=== PATIENT | female | born 1985 | race African-American/Black ===

== ENCOUNTER 2024-06-21 09:12 | Outpatient (CLI) | payer OTHER | END 2024-06-21 09:13 | disposition home or self-care (01) | LOC: ULT 09:12 | PROVIDERS: ATTEND Nurse Practitioner Family | DX: R10.11 Right upper quadrant pain (principal); K86.89 Other specified diseases of pancreas | CPT/HCPCS: 76705 ==

== ENCOUNTER 2024-08-24 09:06 | Outpatient (CLI) | payer OTHER ==
[2024-08-24] MEDS ORDERED: Iopamidol 370 76% 100 ML VIAL ONE (10:07)
== END 2024-08-24 09:07 | disposition home or self-care (01) ==
LOC: BICCT 09:06
DX: D47.Z2 Castleman disease (principal); R91.1 Solitary pulmonary nodule; R59.0 Localized enlarged lymph nodes; K68.9 Other disorders of retroperitoneum
CPT/HCPCS: 36415; 71270; 74178; 82565

== ENCOUNTER 2024-09-14 09:30 | Outpatient (CLI) | payer OTHER | END 2024-09-14 09:31 | disposition home or self-care (01) | LOC: PET 09:30 | PROVIDERS: ATTEND Internal Medicine | DX: D47.Z2 Castleman disease (principal); R59.0 Localized enlarged lymph nodes | CPT/HCPCS: 78815; A9552 ==